=== PATIENT | female | born 1960 | race African-American/Black ===

== ENCOUNTER 2022-06-19 08:55 | Emergency (ER) | payer MEDICAID ==
[~2022-06-19] VITALS: Ht 170.2 cm; Wt 91.0 kg
[2022-06-19 08:58] VITALS: BP 140/78
[2022-06-19] MEDS ORDERED: ACYC200C31 MT (09:21)
[2022-06-19] MEDS ORDERED: LIDO700A15 TP (09:21)
[2022-06-19] MEDS ORDERED: ACET-2708 MT (09:21)
[2022-06-19] MEDS ORDERED: LIDOCAINE 5% PATCH TOP SCH (09:30)
[2022-06-19] MEDS ORDERED: ACYCLOVIR 200MG CAPSULE PO ONE (09:30)
[2022-06-19] MEDS ORDERED: ACETAMINOPHEN 325MG TABLET PO NR (09:30)
[2022-06-19] MEDS ORDERED: ACETAMINOPHEN 325MG TABLET PO ONE (09:30)
== END 2022-06-19 09:51 | disposition home or self-care (01) ==
LOC: ER 08:55
DX: B02.9 Zoster without complications (principal); I10 Essential (primary) hypertension
CPT/HCPCS: 99283

== ENCOUNTER 2022-11-12 08:25 | Emergency (ER) | payer MEDICAID ==
[~2022-11-12] VITALS: Ht 170.2 cm; Wt 73.0 kg
[~2022-11-12 08:25] MED LIST: ACET-2708 MT; ACYC200C31 MT; LIDO700A15 TP
[2022-11-12 08:28] VITALS: O2SAT 98
[2022-11-12 09:54] LABS: BASOPHILS % 0.8 % (0.0-2.0); EOSINOPHILS % 0.8 % (0.0-5.0); HEMATOCRIT. 39.9 % (36.0-48.0); HEMOGLOBIN. 13.6 g/dL (12.0-16.0); LYMPHOCYTES % 18.8 % (20.0-50.0); MEAN CORPUSCULAR HEMOGLOBIN 31.6 pg (28.0-32.0); MEAN PLATELET VOLUME 7.8 fl (7.4-10.4); MONOCYTES % 10.1 % (2.0-8.0); NEUTROPHILS % 69.5 % (40.0-76.0); PLATELET 265 x1000/uL (130-400); RED BLOOD CELL COUNT 4.29 mill/uL (4.2-5.4); RED CELL DISTRIBUTION WIDTH 14.7 % (11.6-14.6)
[2022-11-12 09:56] LABS: CHLORIDE 106 mEq/L (98-107)
[2022-11-12 10:04] LABS: ETHANOL BLOOD < 10 mg/dL (-10)
[2022-11-12] MEDS: SERTRALINE HCL 25MG TABLET PO SCH (13:00)
[2022-11-13 02:49] LABS: CLARITY URINE CLEAR (CLEAR); COLOR URINE YELLOW (YELLOW); KETONES URINE NEGATIVE (NEGATIVE); LEUKOCYTE ESTERASE URINE NEGATIVE (NEGATIVE); NITRITE URINE NEGATIVE (NEGATIVE); OCCULT BLOOD URINE NEGATIVE (NEGATIVE); PROTEIN URINE NEGATIVE (NEGATIVE); SPECIFIC GRAVITY URINE 1.012 (1.005-1.030)
[2022-11-13 02:59] LABS: *AMPHETAMINES SCREEN URINE NEGATIVE (NEGATIVE); *BARBITURATES SCREEN URINE NEGATIVE (NEGATIVE); *BENZODIAZEPINES SCREEN URINE NEGATIVE (NEGATIVE); *COCAINE SCREEN URINE PRESUMTIVE POSITIVE (NEGATIVE); CANNABINOID URINE SCREEN PRESUMTIVE POSITIVE (NEGATIVE); METHADONE URINE SCREEN NEGATIVE (NEGATIVE); OPIATES URINE SCREEN NEGATIVE (NEGATIVE); PHENCYCLIDINE URINE SCREEN NEGATIVE (NEGATIVE)
[2022-11-13] MEDS: SERTRALINE HCL 25MG TABLET PO SCH (09:00)
[2022-11-13 12:20] VITALS: BP 142/83; PULSE 73; RESP 16; TEMP 98.3
== END 2022-11-13 12:22 | disposition home or self-care (01) ==
LOC: ER 08:36
DX: F32.9 Major depressive disorder, single episode, unspecified (principal); Z91.148 Patient's other noncompliance with medication regimen for other reason
CPT/HCPCS: 36415; 80053; 80305; 80307; 80320; 80329; 81003; 85025; 99285; G0480

== ENCOUNTER 2023-11-14 00:26 | Emergency (ER) | payer MEDICAID ==
[~2023-11-14] VITALS: Ht 167.6 cm; Wt 69.0 kg
[2023-11-14 00:32] VITALS: O2SAT 100
[2023-11-14] MEDS: LORAZEPAM 1MG TABLET PO ONE ×2 (01:00→09:43)
[2023-11-14 07:51] LABS: HEMATOCRIT. 43.1 % (36.0-48.0); HEMOGLOBIN. 13.7 g/dL (12.0-16.0); MEAN CORPUSCULAR HEMOGLOBIN 30.9 pg (28.0-32.0); MEAN CORPUSCULAR HGB CONC 31.8 g/dL (31.0-37.0); MEAN CORPUSCULAR VOLUME 96.9 fL (81.0-99.0); MEAN PLATELET VOLUME 7.9 fl (7.4-10.4); PLATELET 228 x1000/uL (130-400); RED BLOOD CELL COUNT 4.45 mill/uL (4.2-5.4); RED CELL DISTRIBUTION WIDTH 14.6 % (11.6-14.6); WHITE BLOOD COUNT 6.3 x1000/uL (4.5-11.0)
[2023-11-14 07:52] LABS: CHLORIDE 108 mEq/L (98-107); POTASSIUM 4.9 mEq/L (3.5-5.1); SODIUM 138 mEq/L (136-145)
[2023-11-14 07:53] LABS: CALCIUM 9.5 mg/dL (8.7-10.4); CARBON DIOXIDE 23 mEq/L (21-32)
[2023-11-14 07:58] LABS: GLUCOSE 71 mg/dL (70-105); UREA NITROGEN BLOOD 14 mg/dL (9-23)
[2023-11-14 07:59] LABS: DIFFERENTIAL COMMENT 1
[2023-11-14 08:00] LABS: ACETAMINOPHEN < 2 ug/mL (10-30); ALANINE AMINOTRANSFERASE 44 IU/L (10-49); ALBUMIN 4.2 g/dL (3.2-4.8); ASPARTATE AMINOTRANSFERASE 84 IU/L (<34); BILIRUBIN DIRECT 0.2 mg/dL (<=3.0); BILIRUBIN TOTAL 1.1 mg/dL (0.1-1.0); PROTEIN TOTAL 7.7 g/dL (6.0-8.3)
[2023-11-14 08:22] LABS: ETHANOL BLOOD < 10 mg/dL (<10)
[2023-11-14 12:08] LABS: PLATELET ESTIMATE NORMAL
[2023-11-14 17:24] LABS: CLARITY URINE CLEAR (CLEAR); COLOR URINE YELLOW (YELLOW); GLUCOSE URINE NEGATIVE (NEGATIVE); KETONES URINE TRACE (NEGATIVE); LEUKOCYTE ESTERASE URINE NEGATIVE (NEGATIVE); NITRITE URINE NEGATIVE (NEGATIVE); OCCULT BLOOD URINE NEGATIVE (NEGATIVE); PH URINE 6.5 (4.5-8.0); PROTEIN URINE TRACE (NEGATIVE); SPECIFIC GRAVITY URINE 1.013 (1.005-1.030)
[2023-11-14 17:32] LABS: *AMPHETAMINES SCREEN URINE NEGATIVE (NEGATIVE); *BARBITURATES SCREEN URINE NEGATIVE (NEGATIVE); *BENZODIAZEPINES SCREEN URINE NEGATIVE (NEGATIVE); *COCAINE SCREEN URINE PRESUMPTIVE POSITIVE (NEGATIVE); METHADONE URINE SCREEN NEGATIVE (NEGATIVE)
[2023-11-14 17:33] LABS: CANNABINOID URINE SCREEN PRESUMPTIVE POSITIVE (NEGATIVE); ECSTASY MDMA SCREEN URINE NEGATIVE (NEGATIVE); OPIATES URINE SCREEN NEGATIVE (NEGATIVE); PHENCYCLIDINE URINE SCREEN NEGATIVE (NEGATIVE)
[2023-11-14] MEDS: OLANZAPINE 10 MG/VIAL IM ONE (17:42)
[2023-11-14 17:43] LABS: BACTERIA URINE TRACE; RBC URINE 0-2 /hpf (0-2); SQUAMOUS EPITHELIAL CELL URINE FEW /lpf (RARE/1+); WBC URINE 0-2 /hpf (0-2)
[2023-11-14] MEDS: QUETIAPINE FUMARATE 25MG TABLET PO SCH (21:00)
[2023-11-15] MEDS: QUETIAPINE FUMARATE 50MG TABLET PO SCH (13:30)
[2023-11-15 14:00] VITALS: BP 144/60; PULSE 64; RESP 16; TEMP 98.7
== END 2023-11-15 14:34 | disposition short-term general hospital (02) ==
LOC: ER 00:26
DX: R45.851 Suicidal ideations (principal); Z00.00 Encounter for general adult medical examination without abnormal findings; Z20.822 Contact with and (suspected) exposure to COVID-19
CPT/HCPCS: 80076; 80305; 80048; 81003; 80307; 80329; 80320; 85025; 36415; 96372; 99285; 87426; J3490; Z7610 ×4; G0480

== ENCOUNTER 2024-03-16 10:10 | Emergency (ER) | payer BC ==
[~2024-03-16] VITALS: Ht 165.1 cm; Wt 70.0 kg
[2024-03-16 10:13] VITALS: O2SAT 98
[2024-03-16 11:59] LABS: BASOPHILS % 0.6 % (0.0-2.0); EOSINOPHILS % 1.2 % (0.0-5.0); HEMATOCRIT. 40.2 % (36.0-48.0); HEMOGLOBIN. 12.9 g/dL (12.0-16.0); LYMPHOCYTES % 21.8 % (20.0-50.0); MEAN CORPUSCULAR HEMOGLOBIN 30.5 pg (28.0-32.0); MEAN CORPUSCULAR HGB CONC 32.1 g/dL (31.0-37.0); MEAN PLATELET VOLUME 7.7 fl (7.4-10.4); MONOCYTES % 12.7 % (2.0-8.0); NEUTROPHILS % 63.7 % (40.0-76.0); PLATELET 262 x1000/uL (130-400); RED BLOOD CELL COUNT 4.23 mill/uL (4.2-5.4); RED CELL DISTRIBUTION WIDTH 14.5 % (11.6-14.6); WHITE BLOOD COUNT 4.8 x1000/uL (4.5-11.0)
[2024-03-16 12:19] LABS: CARBON DIOXIDE 29 mEq/L (21-32); CHLORIDE 104 mEq/L (98-107); POTASSIUM 4.1 mEq/L (3.5-5.1); SODIUM 138 mEq/L (136-145)
[2024-03-16 12:20] LABS: CALCIUM 9.9 mg/dL (8.7-10.4)
[2024-03-16 12:25] LABS: CREATININE 1.3 mg/dL (0.6-1.0); GLUCOSE 94 mg/dL (70-105); UREA NITROGEN BLOOD 22 mg/dL (9-23)
[2024-03-16 12:27] LABS: ACETAMINOPHEN < 2 ug/mL (10-30)
[2024-03-16 12:55] LABS: ETHANOL BLOOD < 10 mg/dL (<10)
[2024-03-18] MEDS: TRAZODONE HCL 50MG TABLET PO ONE (03:16)
[2024-03-18 05:32] LABS: ALANINE AMINOTRANSFERASE 8 IU/L (10-49); ALBUMIN 3.8 g/dL (3.2-4.8); ASPARTATE AMINOTRANSFERASE 10 IU/L (<34)
[2024-03-18 05:33] LABS: BILIRUBIN TOTAL 0.4 mg/dL (0.1-1.0); PROTEIN TOTAL 7.1 g/dL (6.0-8.3)
[2024-03-18 05:35] LABS: BILIRUBIN DIRECT < 0.1 mg/dL (<=3.0)
[2024-03-18 06:44] LABS: CLARITY URINE CLEAR (CLEAR); COLOR URINE YELLOW (YELLOW); GLUCOSE URINE NEGATIVE (NEGATIVE); KETONES URINE NEGATIVE (NEGATIVE); LEUKOCYTE ESTERASE URINE TRACE (NEGATIVE); NITRITE URINE NEGATIVE (NEGATIVE); OCCULT BLOOD URINE NEGATIVE (NEGATIVE); PH URINE 6.5 (4.5-8.0); PROTEIN URINE NEGATIVE (NEGATIVE); SPECIFIC GRAVITY URINE 1.012 (1.005-1.030); UROBILINOGEN URINE 0.2 E.U./dL (0.2-1.0)
[2024-03-18 07:21] LABS: BACTERIA URINE TRACE; RBC URINE NONE SEEN /hpf (0-2); SQUAMOUS EPITHELIAL CELL URINE FEW /lpf (RARE/1+); WBC URINE 0-2 /hpf (0-2)
[2024-03-18 08:18] LABS: *AMPHETAMINES SCREEN URINE NEGATIVE (NEGATIVE); *BARBITURATES SCREEN URINE NEGATIVE (NEGATIVE); *BENZODIAZEPINES SCREEN URINE NEGATIVE (NEGATIVE); *COCAINE SCREEN URINE PRESUMPTIVE POSITIVE (NEGATIVE)
[2024-03-18 08:19] LABS: CANNABINOID URINE SCREEN NEGATIVE (NEGATIVE); ECSTASY MDMA SCREEN URINE NEGATIVE (NEGATIVE); METHADONE URINE SCREEN NEGATIVE (NEGATIVE); OPIATES URINE SCREEN NEGATIVE (NEGATIVE); PHENCYCLIDINE URINE SCREEN NEGATIVE (NEGATIVE)
[2024-03-18] MEDS: OLANZAPINE 5MG TABLET ODT PO PRN (09:36)
[2024-03-18] MEDS: OLANZAPINE 10 MG/VIAL IM ONE (09:37)
[2024-03-18] MEDS: HALOPERIDOL LACTATE 5MG/ML VIAL IM ONE (10:44)
[2024-03-18 14:46] VITALS: BP 164/81; PULSE 74; RESP 14; TEMP 36.72516; O2SAT 98
== END 2024-03-18 15:00 ==
LOC: ER 10:10
DX: F09 Unspecified mental disorder due to known physiological condition (principal); F32.A Depression, unspecified; Z88.0 Allergy status to penicillin; Z79.899 Other long term (current) drug therapy; Z20.822 Contact with and (suspected) exposure to COVID-19
CPT/HCPCS: 80048; 80307; 80329; 80320; 82962; 85025; 36415 ×2; 99285; 80076; 80305; 81003; 87426; J3490; G0480